=== PATIENT | female | born 1960 | race Caucasian/White ===

== ENCOUNTER 2016-05-05 10:05 | Emergency (ER) | payer OTHER ==
[2016-05-05 10:23] VITALS: BP 96/63; PULSE 88; RESP 18; TEMP 98.2; O2SAT 95
--- NOTE | 2016-05-05 10:55 | UCPHY ---
H & P Time Seen by Provider: 05/05/16 10:36 Patient Type: Established HPI/ROS: Chief complaint. Upper respiratory infection HPI. 55-year-old female presents emergency department with URI symptoms for 4 days. Fever at the onset was 103 degrees. She has runny nose and congestion. She is concerned that the drainage is turning yellow green. This morning she also had red eye with goop and drainage from the left eye. Continued cough. No abdominal pain vomiting or diarrhea. No rash. She did get a flu shot. No recent international travel ROS Constitutional. Fever Eyes. Drainage in redness left eye ENT. Sore throat and nasal drainage that is turning yellow green Cardiovascular. no chest pain Respiratory. No shortness breath but cough Abdominal. no abdominal pain, no nausea/vomiting, no diarrhea . no problems urinating MS. no calf pain/swelling, no neck/back pain, no joint pain Skin. no rash Lymph. no swollen glands Neuro. Headache Past Medical/Surgical History: Past medical history hysterectomy Social History: , nonsmoker, no alcohol Smoking Status: Never smoked Physical Exam: General Appearance: Alert pleasant well-developed female mild distress vital signs are stable Eyes: Left eye is mildly erythematous with yellowish drainage. ENT, tympanic membranes are normal. Pharynx slightly injected without exudate Respiratory: There are no retractions, lungs are clear to auscultation. Cardiovascular: Regular rate and rhythm. Gastrointestinal: Abdomen is soft and nontender, no masses, bowel sounds normal. Neurological: Awake and alert, sensory and motor exams grossly normal. Skin: Warm and dry, no rashes. Musculoskeletal: Neck is supple nontender. Extremities symmetrical, full range of motion. Psychiatric: Patient is oriented X 3, there is no agitation. Constitutional: Initial Vital Signs Temperature (C) 36.8 C 05/05/16 10:15 Heart Rate 88 05/05/16 10:15 Respiratory Rate 18 05/05/16 10:15 Blood Pressure 96/63 L 05/05/16 10:15 O2 Sat (%) 95 05/05/16 10:15 O2 Delivery Mode Room Air Allergies/Adverse Reactions: Penicillins Allergy (Severe, Verified 09/01/14 19:43) Rash Home Medications: Medication Instructions Recorded Miscellaneous Medical Supply [NO 1 ea MISC AD 12/18/11 HOME MEDS] Acetaminophen/Codeine 300/30Mg 1 each PO Q6 #15 tab 09/01/14 [Tylenol #3] Azithromycin [Zithromax] 250 mg PO DAILY #6 tab 05/05/16 Gentamicin 0.3% [Gentak 0.3% Opht 2 drops LEFTEYE QID #1 opht.btl 05/05/16 Drops] MDM/Departure - MDM ED Course/Re-evaluation: Patient declines flu swab. Patient and I discussed this is likely viral. She would like an antibiotic prescription in case the sinus drainage gets worse. We discussed treatment plan including criteria for return importance of follow-up and further evaluation. She expresses understanding and agreement Differential Diagnosis: This is likely viral infection. The patient does have some conjunctivitis. She does not appear toxic. This certainly could be influenza - Depart Disposition: Home, Routine, Self-Care Clinical Impression: Upper respiratory infection Qualifiers: URI type: unspecified URI Qualified Code(s): J06.9 - Acute upper respiratory infection, unspecified Condition: Good Instructions: Upper Respiratory Infection (ED) Additional Instructions: Antibiotic eyedrops using 2 drops 4 times daily for 3 days. May apply to right eye if symptoms develop in the right eye. Tylenol and Advil for fever and headache. Drink plenty of fluids and stay hydrated. Should your sinusitis symptoms worsen fill prescription for Zithromax. Recheck in 2-3 days if not improved Prescriptions: Azithromycin [Zithromax] 250 mg PO DAILY #6 tab Gentamicin 0.3% [Gentak 0.3% Opht Drops] 2 drops LEFTEYE QID #1 opht.btl Referrals: Padmini Oleary MD [Primary Care Provider] - 2-3 days, if not improved - PQRS PQRS Measurement: 134: Depression screening and followup, PRIME -PHQ2 (12 years and older) Over the last 2 weeks, how often have you been bothered by any of the following problems? 1. Feeling down, depressed, or hopeless? 2. Little interest or pleasure in doing things? Patient answered no to both 1 and 2 130: Documentation of medications. Reviewed all patient medications, doses, route and frequency. 226: Do you smoke? No.
== END 2016-05-05 11:13 | disposition home or self-care (01) ==
LOC: CED 10:05
DX: J06.9 Acute upper respiratory infection, unspecified (principal)
CPT/HCPCS: 99214-PO; G0463-PO

== ENCOUNTER 2016-09-04 17:03 | Emergency (ER) | payer BC, OTHER ==
--- NOTE | 2016-09-04 17:14 | EDPHY ---
H & P Time Seen by Provider: 09/04/16 17:06 HPI/ROS: 55-year-old female presents complaining of a fall approximately 4 weeks ago where she landed on a large amount of gravel, while hiking at [place] after the injury she went to emergency department where her hand was cleaned out and sutured. She returns today now 4 weeks later concerned that there may still be a foreign body in her hand, she has noted swelling and tenderness in the area where she was sutured. She denies drainage from that area. Review of systems As per HPI General no fever no chills no weakness HEENT no eye pain no eye discharge. No eye redness, no sore throat Respiratory no cough, no shortness of breath Cardiac no chest pain, no peripheral edema GI no abdominal pain, no diarrhea, no constipation, no nausea, no vomiting no flank pain, no hematuria, no dysuria Musculoskeletal no myalgias, no joint pain Heme no easy bruising, no easy bleeding Endo no polyuria, no polydipsia Skin no rashes, no pruritus Neuro no syncope, no dizziness, no headaches Psych is no suicidal ideation, no homicidal ideation Past Medical/Surgical History: Noncontributory Social History: Noncontributory Smoking Status: Never smoked Physical Exam: Alert and oriented in no acute distress nontoxic appearance, afebrile Atraumatic normocephalic Neck no JVD Lungs clear to auscultation, no respiratory distress Heart regular rate and rhythm Extremities no cyanosis clubbing edema Except left hand over the left thenar eminence 5 mm raised area tender to palpation, nonfluctuant Unable to appreciate discrete foreign body Mild erythema however no drainage no lymphangitic streaks no circumferential edema or erythema Constitutional: Initial Vital Signs Temperature (C) 36.7 C 09/04/16 17:13 Heart Rate 80 09/04/16 17:13 Respiratory Rate 16 09/04/16 17:13 Blood Pressure 93/67 L 09/04/16 17:13 O2 Sat (%) 97 09/04/16 17:13 O2 Delivery Mode Room Air Allergies/Adverse Reactions: Penicillins Allergy (Severe, Verified 09/04/16 17:15) Rash Medical Decision Making ED Course/Re-evaluation: Patient seen and evaluated for sensation of retained foreign body in hand after a fall 4 weeks ago. Differential diagnosis considered Retained foreign body, scar tissue, retained suture material, healing wound X-ray No radiopaque foreign body Very vague rounded hyperdensity noted at thumb webspace, per Radiology could be artifact versus a retained rock, however not the typical density of a rock they recommended ultrasound for further delineation. Ultrasound left hand No shadowing to suggest a rock Still possible very minute retained foreign body versus scar tissue versus suture material Impression Patient with pain and tenderness at area of wound that has healed over during the last 4 weeks. I have been unable to ascertain if this may be a rock and do not feel confident opening this healed wound emergently Plan Patient referred to Hand surgery reconciliation specialist Advised to return for increased swelling, purulent drainage, fever or any other problem. Departure - Departure Disposition: Home, Routine, Self-Care Clinical Impression: Retained foreign body of hand Condition: Good Additional Instructions: Follow up with hand surgery. Return for fever, purulent drainage, severe swelling of hand. Referrals: Jill Anthony MD [Primary Care Provider] - As per Instructions Stephon Modi MD [Medical Doctor] - As per Instructions Octavio Joe MD [Medical Doctor] - As per Instructions
[2016-09-04 17:15] VITALS: RESP 16; TEMP 98.1
[2016-09-04 19:04] VITALS: BP 88/53; PULSE 75; O2SAT 96
== END 2016-09-04 19:00 | disposition home or self-care (01) ==
LOC: CED 17:03
DX: M79.89 Other specified soft tissue disorders (principal)
CPT/HCPCS: 73130-PO; 76882-PO

== ENCOUNTER → 2016-10-18 | Outpatient (CLI) | payer BC | LOC: FIMAGING 11:05 | PROVIDERS: ATTEND Family Medicine | DX: Z12.31 Encounter for screening mammogram for malignant neoplasm of breast (principal) | CPT/HCPCS: G0202 ==

== ENCOUNTER → 2016-10-25 | Outpatient (CLI) | payer BC | LOC: FIMAGING 14:15 | PROVIDERS: ATTEND Family Medicine | DX: Z12.39 Encounter for other screening for malignant neoplasm of breast (principal); R92.8 Other abnormal and inconclusive findings on diagnostic imaging of breast | CPT/HCPCS: G0206 ==

== ENCOUNTER → 2017-01-26 | Outpatient (CLI) | payer BC | LOC: FIMAGING 08:17 | PROVIDERS: ATTEND Family Medicine | DX: N64.4 Mastodynia (principal); Z85.3 Personal history of malignant neoplasm of breast ==

== ENCOUNTER → 2017-05-29 | Outpatient (CLI) | payer BC | LOC: FIMAGING 13:07 | PROVIDERS: ATTEND Family Medicine | DX: R92.1 Mammographic calcification found on diagnostic imaging of breast (principal) ==

== ENCOUNTER → 2017-10-23 | Outpatient (CLI) | payer BC | LOC: FIMAGING 13:21 | PROVIDERS: ATTEND Family Medicine | DX: Z12.31 Encounter for screening mammogram for malignant neoplasm of breast (principal) ==